=== PATIENT | female | born 1975 | race Caucasian/White ===

== ENCOUNTER 2022-02-05 09:53 | Emergency (ER) | payer OTHER ==
[~2022-02-05] VITALS: Ht 162.6 cm; Wt 77.1 kg
--- NOTE | 2022-02-05 09:55 | NUR ---
Dr Romano to [facility] to evaluate patient
[2022-02-05 09:58] VITALS: BP_SYST 138
--- NOTE | 2022-02-05 10:00 | NUR ---
Pt to rm 1 and triaged.
--- NOTE | 2022-02-05 10:03 | NUR ---
Pt BIBA re sudden "" feeling to L arm and L sided facial droop while exercising. Sx completely resolved [employer]. Pt denying pain or any discomfort upon arrival. VSS on athletic monitor. Alert and oriented x 3 upon face to face assessment. Pending labs, CT, EKG. Will continue to monitor closely.
--- NOTE | 2022-02-05 10:05 | NUR ---
To CT scan via [facility].
[2022-02-05 10:53] LABS: BASOPHILS % (AUTO) 0.6 % (0.0-2.0); EOSINOPHILS % (AUTO) 0.6 % (0.0-4.0); HEMATOCRIT 37.9 % (36-48); HEMOGLOBIN 12.9 g/dL (12.0-16.0); LYMPHOCYTES # (AUTO) 1.3 K/uL (1.0-5.5); LYMPHOCYTES % (AUTO) 19.6 % (20.5-51.5); MEAN CORPUSCULAR HEMOGLOBIN 32 pg (27-31); MEAN CORPUSCULAR HGB CONC 34 % (32-36); MEAN CORPUSCULAR VOLUME 94 fL (79.0-98.0); MONOCYTES # (AUTO) 0.4 K/uL (0.0-1.0); MONOCYTES % (AUTO) 5.7 % (1.7-9.3); NEUTROPHILS # (AUTO) 4.8 K/uL (1.8-7.7); NEUTROPHILS % (AUTO) 73.5 % (40.0-70.0); PLATELET COUNT (AUTO) 237 K/uL (130-430); RED BLOOD CELL COUNT(AUTO) 4.02 MIL/uL (4.2-6.2); RED CELL DISTRIBUTION WIDTH 13.5 % (9.0-15.0); WHITE BLOOD COUNT (AUTO) 6.6 K/uL (4.8-10.8)
--- NOTE | 2022-02-05 11:20 | NUR ---
Pt updated re ER process. MD to update once all testing is back. Understanding verbalized. Food provided.
[2022-02-05 11:29] LABS: ANION GAP 10 (5-15); CALCIUM 8.2 mg/dL (8.4-11.0); CHLORIDE 100 mmol/L (98-107); CREATININE 1.06 mg/dL (0.55-1.30); GLUCOSE 107 mg/dL (70-99); POTASSIUM 3.4 mmol/L (3.5-5.1); SODIUM SERUM 135 mmol/L (136-145); UREA NITROGEN, BLOOD 21 mg/dL (8-21)
[2022-02-05 11:32] LABS: GFR AFRICAN AMERICAN 71 mL/min (>90)
[2022-02-05 11:34] LABS: ALANINE AMINOTRANSFERASE 37 U/L (12-78); ALBUMIN 3.3 g/dL (3.4-4.8); ASPARTATE AMINOTRANSFERASE 64 U/L (10-37); TOTAL BILIRUBIN 0.4 mg/dL (0.0-1.0)
[2022-02-05] MEDS ORDERED: ASA81 PO (12:08)
--- NOTE | 2022-02-05 12:17 | NUR ---
Patient given written and verbal discharge instructions and verbalizes understanding. ER MD discussed with patient the results and treatment provided. Patient in stable condition. ID arm band removed. IV catheter removed intact and dressing applied, no active bleeding. Rx of Aspirin given. Patient educated on pain management and to follow up with PMD. Pain Scale 0/10. Opportunity for questions provided and answered. Medication side effect fact sheet provided.
[2022-02-05 12:18] VITALS: BP_SYST 128
== END 2022-02-05 10:30 | disposition home or self-care (01) ==
LOC: SED 09:53
DX: G45.9 Transient cerebral ischemic attack, unspecified (principal); R53.1 Weakness; Z79.899 Other long term (current) drug therapy
CPT/HCPCS: 36415; 70450; 70496; 71045; 76376; 80053; 82962; 84484; 85025; 93005; 99285; Q9967